=== PATIENT | female | born 1975 | race Caucasian/White ===

== ENCOUNTER 2017-02-24 10:44 | Emergency (ER) | payer OTHER, MEDICAID ==
[2017-02-24 11:23] VITALS: BP 123/77
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
== END 2017-02-24 12:47 | disposition home or self-care (01) ==
LOC: ED 10:44
DX: S39.012A Strain of muscle, fascia and tendon of lower back, initial encounter (principal); V89.2XXA Person injured in unspecified motor-vehicle accident, traffic, initial encounter; Y93.89 Activity, other specified; Y92.89 Other specified places as the place of occurrence of the external cause; Y99.8 Other external cause status
CPT/HCPCS: 99282